=== PATIENT | female | born 1985 | race Caucasian/White ===

== ENCOUNTER 2024-08-17 10:18 | Emergency (ER) | payer OTHER, SELFPAY ==
[2024-08-17 10:21] VITALS: BP 126/85
[2024-08-17 12:16] VITALS: BP 102/72
--- NOTE | 2024-08-17 12:33 | ED.GENMED ---
History of Present Illness
General
Chief Complaint: DVT/Possible Blood Clot
Source: patient
Time Seen by Provider: 08/17/24 11:01
History of Present Illness
History of Present Illness:
39yoF with a history a prior DVT presenting for evaluation of right calf pain. Symptoms began when she woke up from sleep this morning. She denies any trauma or inciting incident. Pain is present mostly with standing and gradually improves with
ambulation. Pain also improves with rest. The pain is localized to the right posterior calf. Symptoms feel similar to her prior DVT. She denies any shortness of breath, chest pain, syncope. Patient had a DVT in 2018 while . She was
anticoagulated with her subsequent . She also had a DVT about 20 years ago while on oral contraceptives. She is not currently on anticoagulation.
Past History
Past History
ED Past Medical History: Other (Possible iliac vein clot)
Social History
Tobacco: Non-smoker
Living: with family
Family History
Family History: Other
Phy Exam
General Physical Exam
General Presentation: well appearing and no apparent distress
General age: appears stated age
General Skin: warm and dry
General Habitus: normal
General Mental: alert
ENT Exam
ENT Exam: normocephalic
Pulmonary Exam
Pulmonary Exam: no respiratory distress
Neurological Exam
Neurological Exam: alert
[place] Coma Scale
Eye Opening: Spontaneous
Verbal Response: Oriented
Motor Response: Obeys Commands
GCS Total Score: 15
Musculoskeletal Exam
Musculoskeletal Exam: other (Mild tenderness to posterior calf. No pitting edema or skin changes noted. ROM of knee and ankle intact. 2+ PT pulse.)
Skin Exam
Skin Exam: normal color and warm/dry
Psychiatric Exam
Psychiatric Exam: normal mood/affect
Course
Orders/Labs/Results
Orders:
Orders
08/17/24 10:19
US Periph Venous LOWER Ext RT Urgent
Comment:
Reason For Exam: pain
08/17/24 12:59
Test Result ONCE
08/17/24 13:03
Complete Blood Count/With Diff Urgent
Comprehensive Metabolic Panel Urgent
HCG, Serum Qualitative Screen Urgent
PTT Urgent
Prothrombin Time Urgent
Abnormal Lab Results
08/17/24
13:03
RBC 3.75 L 10^6/uL
(4.20-5.40)
Hgb 11.6 L g/dL
(12.0-16.0)
Hct 36.7 L %
(37.0-47.0)
MCHC 31.6 L g/dL
(33.0-37.0)
Lymphocytes % 18.7 L %
(20.5-51.1)
BUN 19 H mg/dl
(7-17)
Total Bilirubin 0.1 L mg/dl
(0.2-1.3)
08/17/24 13:03
08/17/24 13:03
Vital Signs
Initial and Last Documented VS:
Initial Vital Signs
Temp Pulse Resp BP Pulse Ox
98.5 F 96 16 126/85 100
08/17/24 10:21 08/17/24 10:21 08/17/24 10:21 08/17/24 10:21 08/17/24 10:21
Last Documented Vital Signs
Temp Pulse Resp BP Pulse Ox
98.5 F 96 16 102/74 98
08/17/24 10:21 08/17/24 10:21 08/17/24 10:21 08/17/24 14:00 08/17/24 14:15
MDM/Problems Addressed
MDM/Problems Addressed:
39yoF here with R calf pain that began this morning. Hx of DVT and this feels the same. No CP/SOB. She is afebrile and hemodynamically stable. She is well appearing in no distress. Mild tenderness on exam. No pitting edema or skin changes. RLE is
neurovascularly intact. Differential diagnosis includes but is not limited to: DVT, superficial thrombophlebitis, musculoskeletal pain
Initial ED plan: Check venous duplex.
*Critical Care Note
Total Time (30-74mins, 75-104mins- exclusive of procedures): Not Applicable
Update Note
Update Note:
Venous duplex reveals 'Mild nonocclusive thrombus in the right distal greater saphenous vein, common femoral vein, and femoral vein. Thrombus is located peripherally and is probably chronic in correlation with the previous venous ultrasound from
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
Findings discussed with hematology (Dr. Sánchez). Hematology recommending anticoagulation as she is clinically symptomatic with no other explanation of her pain. Labs obtained. Renal function normal and HCG negative. She was given a prescription for
an Eliquis starter pack. Advised f/u with PCP and hematology. ED return precautions discussed including chest pain and shortness of breath. She expressed understanding and was discharged in stable condition.
ED Attending Note
-
Portions of this chart may have been created with voice recognition software.� Occasional wrong word or��sound alike� substitutions may have occurred due to the inherent limitations of voice recognition software.
Discharge Plan
Departure
Patient Disposition: Home (Routine Discharge)
Date of Disposition: 08/17/24
Time of Disposition: 14:21
Patient with high blood pressure during this ER visit?: No
Discharge Problem:
Acute deep vein thrombosis (DVT) of right lower extremity
Instructions: Deep Vein Thrombosis (Blood Clots in the Legs) (DC), Apixaban
Prescriptions:
New
Eliquis DVT-PE Treat 30D Start 5 mg (74 tabs) tablets,dose pack
See Rx Instructions .ROUTE .COMPLEX Qty: 74 0RF
Rx Instructions:
orally per package directions
No Action
levothyroxine 50 MCG tablet
75 mcg PO DAILY
vit-iron fum-folic ac 1 EACH tablet
1 ea PO DAILY
ibuprofen 600 MG tablet
600 mg PO Q4HPRN PRN (Reason: moderate pain/cramps) 0RF
enoxaparin 40 MG/0.4 ML syringe
40 mg SC QPM 0RF
Referrals:
Joe Sánchez DO [Active] -
Ashley Corrigan MD [Family Provider] -
Activity Restrictions/Additional Instructions:
Take Eliquis as prescribed.
Please call on Monday to schedule a follow-up with your family doctor and hematology. Return to the ER with any worsening symptoms, chest pain, shortness of breath, loss of consciousness.
Interventions
Interventions:
*Risk Screen - Suicide Last Done: 08/17/24 10:21
*General Assessment Last Done: 08/17/24 10:21
*Neglect/Abuse Screening Last Done: 08/17/24 10:21
ED- Fall Risk Assessment Last Done: 08/17/24 11:21
*ED COVID-19 Vaccine History Last Done: 08/17/24 10:21
*Nursing Disposition Last Done: 08/17/24 14:46
ED- Cardiac Assessment Last Done: 08/17/24 11:21
ED- Pulmonary Assessment Last Done: 08/17/24 11:21
ED-Peripheral Vascular Assessment Last Done: 08/17/24 11:21
ED-Skin Assessment Last Done: 08/17/24 11:21
Discharge Date and Time
Discharge Date/Time: 08/17/24 14:46
Print Language: [id number]
[2024-08-17 13:00] VITALS: BP 106/76
[2024-08-17 13:04] VITALS: BMI 21.6
[2024-08-17 13:14] LABS: % Basophils 0.9 % (0-2); % Eosinophils 1.6 % (0-6); % Immature Granulocytes 0.1 % (0-0.5); % Lymphocytes 18.7 % (20.5-51.1); % Neutrophils 70.7 % (42.2-75.2); Absolute Basophils 0.1 10^3/uL (0-0.2); Absolute Eosinophils 0.1 10^3/uL (0-0.7); Absolute Lymphocytes 1.3 10^3/uL (1.2-3.4); Absolute Monocytes 0.6 10^3/uL (0.1-0.6); Hematocrit 36.7 % (37.0-47.0); Hemoglobin 11.6 g/dL (12.0-16.0); Mean Corp Hgb Conc. 31.6 g/dL (33.0-37.0); Mean Corpuscular Hgb 30.9 pg (27.0-31.0); Mean Corpuscular Volume 97.9 fL (81.0-99.0); Nucleated Red Blood Cells % 0 %; Platelet Count 316 10^3/uL (130-400); Red Blood Cell Count 3.75 10^6/uL (4.20-5.40); Red Cell Dist. Width 12.2 % (11.5-14.5)
[2024-08-17 13:27] LABS: PT 12.4 Sec (11.4-14.6)
[2024-08-17 13:28] LABS: APTT 29.4 Sec (23.4-35.0)
[2024-08-17 13:38] LABS: HCG, Serum Qualitative Screen Negative
[2024-08-17 13:40] LABS: ALT (SGPT) 16 U/L (0-35); AST (SGOT) 24 U/L (14-36); Albumin 4.5 g/dl (3.5-5.0); Alkaline Phosphatase 45 U/L (38-126); Blood Urea Nitrogen 19 mg/dl (7-17); Calcium 9.5 mg/dl (8.4-10.2); Carbon Dioxide 27 mmol/L (22-30); Chloride 104 mmol/L (98-107); Estimated Creatinine Clearance 95 ml/min; Glucose 96 mg/dl (70-99); Potassium 4.3 mmol/L (3.5-5.1); Sodium 137 mmol/L (135-145); Total Bilirubin 0.1 mg/dl (0.2-1.3); Total Protein 7.3 g/dl (6.3-8.2); eGFR > 60.00
[2024-08-17 14:00] VITALS: BP 102/74
== END 2024-08-17 14:46 | disposition home or self-care (01) ==
LOC: EMR 10:18
PROVIDERS: Physician Assistant; EMERGENCY PHYSICIAN Emergency Medicine; FAMILY PHYSICIAN Family Medicine
DX: I82.411 Acute embolism and thrombosis of right femoral vein (principal); Z86.718 Personal history of other venous thrombosis and embolism
CPT/HCPCS: 99284; 80053; 84703; 85025; 85610; 85730; 93971

== ENCOUNTER → 2025-07-17 13:18 | Outpatient (REF) | payer OTHER, SELFPAY | LOC: RAD 13:18 | PROVIDERS: ATTENDING PHYSICIAN Family Medicine | DX: I80.9 Phlebitis and thrombophlebitis of unspecified site (principal); M79.604 Pain in right leg; I83.811 Varicose veins of right lower extremity with pain | CPT/HCPCS: 93971 ==